=== PATIENT | male | born 1975 | race African-American/Black ===

== ENCOUNTER 2016-11-26 16:23 | Emergency (ER) | payer MEDICAID, OTHER ==
[~2016-11-26] VITALS: Ht 170.2 cm; Wt 63.5 kg
[2016-11-26 16:50] VITALS: BP 147/104
[2016-11-26] MEDS ORDERED: TETANUS-DIPTH-ACEL PERTUSSIS 0.5ML SYRG IM ONE (17:15)
[2016-11-26] MEDS ORDERED: cefTRIAXone SOD 1,000 MG VL IM ONE (17:15)
[2016-11-26] MEDS ORDERED: NEOMYCIN-BACITRACIN-POLYM UNITDOSE PKG TOP OINT TOP ONE (17:15)
[2016-11-26] MEDS ORDERED: KETOROLAC TROMETH 60MG/2ML VIAL IM ONE (17:15)
== END 2016-11-26 17:51 | disposition home or self-care (01) ==
LOC: EDBD 16:26 → ER 16:26
DX: S61.032A Puncture wound without foreign body of left thumb without damage to nail, initial encounter (principal); S61.231A Puncture wound without foreign body of left index finger without damage to nail, initial encounter; S61.233A Puncture wound without foreign body of left middle finger without damage to nail, initial encounter; Z23 Encounter for immunization; W54.0XXA Bitten by dog, initial encounter; Y93.89 Activity, other specified; Y99.8 Other external cause status; Y92.89 Other specified places as the place of occurrence of the external cause
CPT/HCPCS: 90471; 90715; 96372; 99284; J0696; J1885